=== PATIENT | male | born 1990 | race Caucasian/White ===

== ENCOUNTER → 2020-10-07 | Outpatient (CLI) | payer BC ==
--- NOTE | 2020-10-07 17:11 | KCIC ---
Exam Date: 10/07/2020 2:05 PM MRI RIGHT LOWER EXTREMITY JOINT WITHOUT Indication: Reason: RIGHT ANKLE PAIN / Spl. Instructions: Pain is both medial and lateral side of ank le. / History: At least 2 rt ankle injuries since July, heard a pop twice.. TECHNIQUE: Multiplanar MR images of the ankle without intravenous contrast. FINDINGS: The anterior talofibular ligament is not visualized consistent with a complete tear. The posterior talofibular ligament are intact. The anterior and posterior tibiofibular ligaments are intact. The calcaneofibular ligament is intact. The deep fibers of the deltoid ligament appears sli ghtly indistinct and demonstrate increased signal consistent with a mild sprain or partial tear. The superficial fibers of the deltoid ligament are intact. The spring ligament is intact. Lisfranc ligame nt is intact. The posterior tibial tendon, flexor digitorum longus tendon, and flexor hallucis longus tendon are in tact and within normal limits. The peroneal tendons are intact. Visualized extensor tendons are int act. Achilles tendon is intact and within normal limits. There is a 1.5 x 1.5 cm area of full-thickness chondral loss along the posterolateral aspect of the t alar dome with subchondral cystic changes and marrow edema, as well as mild irregularity of the artic ular surface. Mild scattered degenerative marrow signal seen elsewhere in the ankle and foot. There i s a 1.2 cm cyst in the mid calcaneus. No acute fracture is seen. There is an ankle joint effusion. The tarsal tunnel, sinus tarsi and plantar fascia are within normal limits. IMPRESSION: There is a complete tear of the anterior talofibular ligament. There is a mild sprain or partial tear involving the deep fibers of the deltoid ligament. There is large full-thickness chondral loss involving the posterior lateral talar dome with prominent subchondral degenerative marrow changes and mild irregularity of the articular surface. Electronically signed by: Lam Garcia MD (10/07/2020 5:09 PM) [id number]
== END ==
LOC: KCIC MRI 13:17
PROVIDERS: ATTEND Physician Assistant
DX: S93.491A Sprain of other ligament of right ankle, initial encounter (principal); M24.071 Loose body in right ankle; M25.571 Pain in right ankle and joints of right foot; M25.471 Effusion, right ankle; X58.XXXA Exposure to other specified factors, initial encounter; Y93.89 Activity, other specified; Y92.89 Other specified places as the place of occurrence of the external cause; Y99.8 Other external cause status; Q66.89 Other specified congenital deformities of feet
CPT/HCPCS: 73721